=== PATIENT | male | born 1960 | race Caucasian/White ===

== ENCOUNTER 2021-06-03 20:08 | Emergency (ER) | payer OTHER ==
[~2021-06-03] VITALS: Ht 177.8 cm; Wt 58.4 kg
[2021-06-03 23:05] LABS: CLARITY,URINE CLOUDY (Clear); COLOR,URINE RED (Yellow); UA COLLECTION TYPE NON-SPECIFIED
[2021-06-03 23:10] LABS: BACTERIA,URINE 1+ /HPF (Neg); RBC,URINE TNTC /HPF (0-2); SQUAMOUS EPITHELIAL CELL,UR FEW /LPF (FEW)
[2021-06-03 23:11] LABS: MUCUS STRANDS NONE SEEN /LPF (Neg)
[2021-06-03 23:29] LABS: BASOPHILS # (AUTO) 0.1 X10'3 (0-0.2); BASOPHILS % (AUTO) 1.4 % (0-1); EOSINOPHILS # (AUTO) 0.2 X10'3 (0-0.9); EOSINOPHILS % (AUTO) 2.5 % (0-6); HEMATOCRIT 38.7 % (42.0-52.0); HEMOGLOBIN 12.9 g/dl (14.0-17.9); LYMPHOCYTES # (AUTO) 1.3 X10'3 (1.1-4.8); LYMPHOCYTES % (AUTO) 12.8 % (21-51); MEAN CORPUSCULAR HEMOGLOBIN 30.5 PG (27.0-31.0); MEAN CORPUSCULAR HGB CONC 33.2 g/dL (33.0-36.5); MEAN CORPUSCULAR VOLUME 91.7 FL (78-98); MEAN PLATELET VOLUME 7.9 FL (7.4-10.4); MONOCYTES # (AUTO) 0.5 X10'3 (0-0.9); MONOCYTES % (AUTO) 5.3 % (2-12); NEUTROPHILS # (AUTO) 7.6 X10'3 (1.8-7.7); PLATELET COUNT 267 X10'3 (140-440); RED BLOOD COUNT 4.22 X10'6 (4.70-6.10); RED CELL DISTRIBUTION WIDTH 13.3 % (11.5-14.5); WHITE BLOOD COUNT 9.8 X10'3 (4.5-11.0)
[2021-06-03] MEDS ORDERED: ketorolac trometh. 30mg/ml inj. IV ONE (23:55)
[2021-06-03] MEDS ORDERED: LIDOcaine 2% 10ml TOPICAL JELLY (Urojet) MM ONE (23:55)
[2021-06-04] MEDS ORDERED: cefTRIAXone 1g/NS 100ml IVPB 100 ML IV ONE (00:10)
[2021-06-04] MEDS ORDERED: meperidine/PF 50mg/ml syringe IV ONE (00:10)
[2021-06-04] MEDS ORDERED: dexamethasone sod phosphate 10mg/ml inj IV STA (00:15)
[2021-06-04 00:29] LABS: ALANINE AMINOTRANSFERASE 45 U/L (12-78); ALBUMIN 3.9 G/DL (3.4-5.0); ALBUMIN/GLOBULIN RATIO 1.2 (1.1-1.5); ANION GAP 11 (8-16); ASPARTATE AMINO TRANSFERASE 27 U/L (10-37); BILIRUBIN,TOTAL 0.4 MG/DL (0.1-1.0); BLOOD UREA NITROGEN 16 MG/DL (7-18); BUN/CREATININE RATIO 15.7 (5.4-32.0); CALCIUM 8.8 MG/DL (8.5-10.1); CHLORIDE 110 MMOL/L (99-107); CREATININE 1.02 MG/DL (0.60-1.10); GLUCOSE 108 MG/DL (70-104); POTASSIUM 5.4 MMOL/L (3.5-5.1); SODIUM 146 MMOL/L (135-145); TOTAL CARBON DIOXIDE 25.5 MMOL/L (24-32); TOTAL PROTEIN 7.2 G/DL (6.4-8.2); eGFR 74 ML/MIN
[2021-06-04 00:50] LABS: ALKALINE PHOSPHATASE 79 IU/L (46-116)
[2021-06-04 01:18] VITALS: BP 124/80
== END 2021-06-04 01:18 | disposition home or self-care (01) ==
LOC: ER 20:09
DX: T81.89XA Other complications of procedures, not elsewhere classified, initial encounter (principal); R31.9 Hematuria, unspecified; R30.9 Painful micturition, unspecified
CPT/HCPCS: 36415; 80053; 81001; 84484; 85025; 87088; 96365; 96375; 99284; J0696; J1100; J1885; J2175